=== PATIENT | female | born 1945 | race African-American/Black ===

== ENCOUNTER 2017-05-16 13:54 | Observation (INO) ==
[2017-05-17 06:49] LABS: Basophils % 0.6 % (0.0-0.8); Eosinophils # 0.3 10*3/uL (0.0-0.87); Eosinophils % 4.3 % (0.00-10.9); Hematocrit 34.2 VOL% (35.7-47.0); Immature Granulocytes % 0.3 %; Immature Granulocytes Absolute 0.02 #; Lymphocytes % 29.9 % (21.3-54.2); Mean Corpuscular HGB Conc 35.1 GM/DL (32-36); Mean Corpuscular Hemoglobin 31 PG (27-34); Mean Corpuscular Volume 86.8 FL (87-102); Monocytes # 0.6 10*3/uL (0.11-0.8); Monocytes % 8.4 % (1.7-12.7); Neutrophils # 3.7 10*3/uL (1.4-7.4); Neutrophils % 56.5 % (38.7-73.9); Platelet Count 132 T/CUMM (130-400); Red Blood Count 3.94 MC/CUMM (3.8-5.5); Red Cell Distribution Width 11.9 % (9.3-17.3); White Blood Count 6.6 T/CUMM (4-12)
[2017-05-17 06:53] LABS: Albumin 2.9 G/DL (3.4-5.0); Bilirubin,Total 0.6 MG/DL (0.2-1.0); Calcium 8.6 MG/DL (8.5-10.1); Osmolality,Calculated 289.7 MOS/KG (273-304); Potassium 3.8 MMOL/L (3.5-5.1); Total Protein 5.5 G/DL (6.4-8.3)
[2017-05-17 06:59] LABS: INR 1.1; PT Patient Result 11.3 SECS
[2017-05-17] MEDS ORDERED: ceFAZolin 1,000 MG VIAL IRRIG ONE (07:00)
[2017-05-17] MEDS ORDERED: ONDANSETRON 4 MG/2 ML VIAL IV ONE (07:00)
[2017-05-17] MEDS ORDERED: ceFAZolin 1,000 MG in SYRINGE 1 EACH IV ONE (07:00)
[2017-05-17] MEDS ORDERED: SODIUM CHLORIDE 0.9% 1,000 ML IV SCH ×2 (07:00)
[2017-05-17] MEDS ORDERED: DIAZEPAM 5 MG TABLET PO ONE (07:00)
[2017-05-17] MEDS ORDERED: diphenhydrAMINE CAP 25 MG CAPSULE PO ONE (07:00)
[2017-05-17] MEDS ORDERED: FLUMAZENIL 1 MG/10 ML VIAL IV PRN (07:00)
[2017-05-17] MEDS ORDERED: NALOXONE 0.4 MG/ML VIAL IV PRN (07:00)
[2017-05-17] MEDS: metFORMIN 500 MG TABLET PO SCH (09:34)
[2017-05-17] MEDS: FUROSEMIDE 40 MG TABLET PO SCH (09:44)
[2017-05-17] MEDS: POTASSIUM CHLORIDE 20 MEQ TABLET PO SCH (09:44)
[2017-05-17] MEDS: ENALAPRIL 10 MG TABLET PO SCH ×2 (09:44→22:12)
[2017-05-17] MEDS: ASPIRIN EC 81 MG TABLET PO SCH (09:44)
[2017-05-17] MEDS: FLUTICASONE 50 MCG NASAL SPRAY 16 GM BOTTLE BOTH NARES SCH (09:44)
[2017-05-17] MEDS: CETIRIZINE 10 MG TABLET PO SCH (09:45)
[2017-05-17] MEDS: MOMETASONE 220 MCG/PUFF INHALER 14 DOSE INH SCH (09:47)
[2017-05-17 10:15] LABS: Apearance,Urine Slightly Hazy (Clear); Bacteria,Urine Occasional /HPF (Few); Bilirubin,Urine Negative (Negative); Blood, Urine Negative (Negative); Glucose,Urine (UA) Negative (Negative); Ketones,Urine Negative (Negative); Nitrite,Urine Negative (Negative); Protein,Urine Negative; RBC,Urine <1 /HPF (0-4); Squamous Epithelial Cell,Urine Occasional /HPF (0-10); Urine Color Yellow (Yellow); Urine Specific Gravity 1.011 (1.001-1.035); Urine Urobilinogen < 2.0 EU/DL (0.2-1.0); WBC,Urine 1 /HPF (0-6)
[2017-05-17] MEDS ORDERED: MIDAZOLAM 2 MG/2 ML VIAL ONE ×2 (12:54→13:29)
[2017-05-17] MEDS ORDERED: LIDOCAINE 1% 20 ML VIAL ONE (12:54)
[2017-05-17] MEDS ORDERED: ceFAZolin 1,000 MG VIAL ONE ×2 (12:54→12:58)
[2017-05-17] MEDS ORDERED: fentaNYL 100 MCG/2 ML VIAL ONE (12:54)
[2017-05-17] MEDS ORDERED: diphenhydrAMINE 50 MG/1 ML VIAL ONE (13:26)
[2017-05-17] MEDS ORDERED: TISSUE ADHESIVE 1 EACH APPLICATOR TOP ONE (13:32)
[2017-05-17] MEDS ORDERED: DEXTROSE 50% 25 GM/50 ML VIAL IV PRN (14:47)
[2017-05-17] MEDS ORDERED: GLUCAGON 1 MG VIAL IM PRN (14:47)
[2017-05-17] MEDS ORDERED: metFORMIN 500 MG TABLET PO SCH (17:00)
[2017-05-17] MEDS ORDERED: ZALEPLON 5 MG CAPSULE PO PRN (18:48)
[2017-05-17] MEDS ORDERED: diphenhydrAMINE CAP 25 MG CAPSULE PO PRN (18:48)
[2017-05-17] MEDS ORDERED: BISACODYL 5 MG TABLET PO PRN (18:48)
[2017-05-17] MEDS ORDERED: guaiFENesin/DM ER 600-30 MG TABLET PO PRN (18:48)
[2017-05-17] MEDS ORDERED: TERAZOSIN 2 MG CAPSULE PO SCH (21:00)
[2017-05-18] MEDS ORDERED: traMADol 50 MG TABLET PO PRN (06:14)
[2017-05-18 07:43] VITALS: BP 114/83
[2017-05-18] MEDS ORDERED: PANTOPRAZOLE 40 MG TABLET PO SCH (09:00)
[2017-05-18] MEDS: CETIRIZINE 10 MG TABLET PO SCH (09:30)
[2017-05-18] MEDS: POTASSIUM CHLORIDE 20 MEQ TABLET PO SCH (09:31)
[2017-05-18] MEDS: ENALAPRIL 10 MG TABLET PO SCH (09:31)
[2017-05-18] MEDS: MOMETASONE 220 MCG/PUFF INHALER 14 DOSE INH SCH (09:32)
[2017-05-18] MEDS: ASPIRIN EC 81 MG TABLET PO SCH (09:32)
[2017-05-18] MEDS: metFORMIN 500 MG TABLET PO SCH (09:32)
[2017-05-18] MEDS: FUROSEMIDE 40 MG TABLET PO SCH (09:32)
[2017-05-18] MEDS: FLUTICASONE 50 MCG NASAL SPRAY 16 GM BOTTLE BOTH NARES SCH (09:32)
== END 2017-05-18 11:15 | disposition home or self-care (01) ==
LOC: N.RAD 13:54 → INTOOBSV 18:30 → N.TELES 18:30 → INTOOBSV 05-17 09:52 → N.TELES 05-17 09:52
PROVIDERS: ADMIT Internal Medicine Cardiovascular Disease; ATTEND Internal Medicine Cardiovascular Disease

== ENCOUNTER 2018-06-29 05:20 | Inpatient (IN) ==
[2018-06-16 13:33] LABS: Basophils % 0.7 % (0.0-0.8); Eosinophils # 0.2 10*3/uL (0.0-0.87); Eosinophils % 3.8 % (0.00-10.9); Hemoglobin 11.7 GM/DL (12.0-16.0); Immature Granulocytes % 0.3 %; Immature Granulocytes Absolute 0.02 #; Lymphocytes # 1.8 10*3/uL (1.4-4.0); Lymphocytes % 31.6 % (21.3-54.2); Mean Corpuscular HGB Conc 33.4 GM/DL (32-36); Mean Corpuscular Hemoglobin 30 PG (27-34); Mean Corpuscular Volume 90.4 FL (87-102); Mean Platelet Volume 11.1 FL (9.6-12.0); Monocytes # 0.5 10*3/uL (0.11-0.8); Monocytes % 8.1 % (1.7-12.7); Neutrophils # 3.2 10*3/uL (1.4-7.4); Neutrophils % 55.5 % (38.7-73.9); Platelet Count 170 T/CUMM (130-400); Red Blood Count 3.87 MC/CUMM (3.8-5.5); White Blood Count 5.8 T/CUMM (4-12)
[2018-06-16 13:43] LABS: PT Patient Result 11.3 SECS; Partial Thromboplastin Time 23.8 SECS (0-40)
[2018-06-16 14:01] LABS: Apearance,Urine CLEAR (Clear); Bilirubin,Urine Negative (Negative); Blood, Urine Negative (Negative); Glucose,Urine (UA) Negative (Negative); Ketones,Urine Negative (Negative); Nitrite,Urine Negative (Negative); Protein,Urine Negative; RBC,Urine 1 /HPF (0-4); Squamous Epithelial Cell,Urine Occasional /HPF (0-10); Urine Color Yellow (Yellow); Urine Specific Gravity 1.011 (1.001-1.035); Urine Urobilinogen < 2.0 EU/DL (0.2-1.0); WBC,Urine <1 /HPF (0-6)
[2018-06-16 14:09] LABS: Alanine Aminotransferase 19 U/L (13-56); Alkaline Phosphatase 59 U/L (45-117); Aspartate Amino Transferase 13 U/L (0-37); Bilirubin,Total < 0.39 MG/DL (0.2-1.0); Blood Urea Nitrogen 13 MG/DL (7-18); Calcium 8.6 MG/DL (8.5-10.1); Glucose 72 MG/DL (74-106); Osmolality,Calculated 284.8 MOS/KG (273-304); Potassium 3.9 MMOL/L (3.5-5.1); Sodium 144 MMOL/L (136-145); Total Protein 6.3 G/DL (6.4-8.3)
[2018-06-29] MEDS ORDERED: ceFAZolin 1,000 MG in SYRINGE 1 EACH IV ONE (06:30)
[2018-06-29] MEDS ORDERED: VANCOMYCIN INJ 1,000 MG in SODIUM CHLORIDE 0.9% 250 ML IV ONE (06:30)
[2018-06-29] MEDS ORDERED: FAMOTIDINE 20 MG TABLET PO ONE (07:38)
[2018-06-29] MEDS ORDERED: FAMOTIDINE 20 MG TABLET ONE (08:00)
[2018-06-29] MEDS ORDERED: ceFAZolin 1,000 MG VIAL ONE (08:00)
[2018-06-29] MEDS ORDERED: VANCOMYCIN 1,000 MG VIAL ONE (08:00)
[2018-06-29] MEDS ORDERED: LACTATED RINGERS 1,000 ML IV SCH (08:00)
[2018-06-29] MEDS ORDERED: ROPIVACAINE 0.5% 30 ML VIAL ONE (10:10)
[2018-06-29] MEDS ORDERED: MIDAZOLAM 2 MG/2 ML VIAL ONE ×2 (10:15→13:44)
[2018-06-29] MEDS ORDERED: TRANEXAMIC ACID 1,000 MG/10 ML VIAL ONE (10:31)
[2018-06-29] MEDS ORDERED: PROPOFOL 500 MG/50 ML BOTTLE IV ONE (10:32)
[2018-06-29] MEDS ORDERED: PHENYLEPHRINE DRIP 20 MG/250 ML PREMIX IV ONE (10:32)
[2018-06-29] MEDS ORDERED: FLUTICASONE 50 MCG NASAL SPRAY 16 GM BOTTLE BOTH NARES PRN (11:02)
[2018-06-29] MEDS ORDERED: MAGNESIUM HYDROXIDE SUSP 30 ML UDCUP PO PRN (11:04)
[2018-06-29] MEDS ORDERED: diphenhydrAMINE CAP 25 MG CAPSULE PO PRN (11:04)
[2018-06-29] MEDS ORDERED: MORPHINE 4 MG/1 ML VIAL IV PRN ×2 (11:04)
[2018-06-29] MEDS ORDERED: DEXTROSE 50% 25 GM/50 ML VIAL IV PRN (11:04)
[2018-06-29] MEDS ORDERED: ONDANSETRON 4 MG/2 ML VIAL IV PRN ×2 (11:04→12:38)
[2018-06-29] MEDS ORDERED: oxyCODONE IR 5 MG TABLET PO PRN ×2 (11:04)
[2018-06-29] MEDS ORDERED: GLUCAGON 1 MG VIAL IM PRN (11:04)
[2018-06-29] MEDS ORDERED: ZALEPLON 5 MG CAPSULE PO PRN (11:04)
[2018-06-29] MEDS ORDERED: BACITRACIN OINT 0.9 GM PACK TOP ONE (11:44)
[2018-06-29] MEDS: LACTATED RINGERS 1,000 ML IV SCH (12:15)
[2018-06-29] MEDS ORDERED: HYDROmorphone 2 MG/1 ML VIAL ONE (12:20)
[2018-06-29] MEDS ORDERED: ACETAMINOPHEN 1,000 MG/100 ML VIAL IV ONE (12:20)
[2018-06-29] MEDS ORDERED: ONDANSETRON 4 MG/2 ML VIAL ONE (12:20)
[2018-06-29] MEDS: HYDROmorphone 2 MG/1 ML VIAL IV PRN ×4 (12:25→12:40)
[2018-06-29] MEDS ORDERED: MEPERIDINE 25 MG/1 ML VIAL ONE (12:38)
[2018-06-29] MEDS ORDERED: MEPERIDINE 25 MG/1 ML VIAL IV PRN (12:38)
[2018-06-29] MEDS ORDERED: PROMETHAZINE INJ 25 MG in SODIUM CHLORIDE 0.9% 50 ML IV PRN (12:38)
[2018-06-29] MEDS ORDERED: PROMETHAZINE 25 MG/1 ML VIAL ONE (12:38)
[2018-06-29] MEDS ORDERED: ACETAMINOPHEN INJ 1,000 MG in PREMIX 1 EACH IV ONE (12:39)
[2018-06-29] MEDS: INSULIN LISPRO 100 UNIT/ML SUBCUT SCH ×3 (12:57→21:46)
[2018-06-29] MEDS: KETOROLAC 15 MG/1 ML VIAL IV SCH ×2 (13:00→18:33)
[2018-06-29] MEDS ORDERED: hydrALAZINE 20 MG/1 ML VIAL ONE (13:44)
[2018-06-29] MEDS ORDERED: KETAMINE 500 MG/10 ML VIAL ONE (13:45)
[2018-06-29] MEDS ORDERED: DEXTROSE 50% 25 GM/50 ML SYRINGE IV PRN (14:30)
[2018-06-29] MEDS ORDERED: ALBUTEROL 2.5 MG/3 ML NEB RESP TX PRN (15:00)
[2018-06-29] MEDS: ceFAZolin 2,000 MG in PREMIX 1 EACH IV SCH ×2 (16:10→23:25)
[2018-06-29] MEDS: metFORMIN 500 MG TABLET PO SCH (18:31)
[2018-06-29] MEDS: ACETAMINOPHEN 500 MG TABLET PO SCH (18:32)
[2018-06-29] MEDS: TERAZOSIN 5 MG CAPSULE PO SCH (21:44)
[2018-06-29] MEDS: DOCUSATE SODIUM 100 MG CAPSULE PO SCH (21:44)
[2018-06-29] MEDS: ENALAPRIL 10 MG TABLET PO SCH (21:44)
[2018-06-30] MEDS: ACETAMINOPHEN 500 MG TABLET PO SCH ×3 (01:22→12:38)
[2018-06-30] MEDS: KETOROLAC 15 MG/1 ML VIAL IV SCH ×2 (01:22→07:20)
[2018-06-30] MEDS: LACTATED RINGERS 1,000 ML IV SCH ×2 (03:17→03:43)
[2018-06-30] MEDS: FONDAPARINUX 2.5 MG/0.5 ML SYRINGE SUBCUT SCH (04:54)
[2018-06-30 05:37] LABS: Basophils % 0.4 % (0.0-0.8); Eosinophils # 0.2 10*3/uL (0.0-0.87); Eosinophils % 3.1 % (0.00-10.9); Hematocrit 29.8 VOL% (35.7-47.0); Hemoglobin 9.6 GM/DL (12.0-16.0); Immature Granulocytes % 0.3 %; Immature Granulocytes Absolute 0.02 #; Lymphocytes # 1.5 10*3/uL (1.4-4.0); Lymphocytes % 21.9 % (21.3-54.2); Mean Corpuscular HGB Conc 32.2 GM/DL (32-36); Mean Corpuscular Hemoglobin 30 PG (27-34); Mean Corpuscular Volume 91.7 FL (87-102); Mean Platelet Volume 11.7 FL (9.6-12.0); Monocytes # 0.7 10*3/uL (0.11-0.8); Neutrophils # 4.3 10*3/uL (1.4-7.4); Neutrophils % 63.3 % (38.7-73.9); Platelet Count 134 T/CUMM (130-400); Red Blood Count 3.25 MC/CUMM (3.8-5.5); White Blood Count 6.8 T/CUMM (4-12)
[2018-06-30 05:53] LABS: Calcium 7.7 MG/DL (8.5-10.1); Potassium 3.9 MMOL/L (3.5-5.1)
[2018-06-30] MEDS ORDERED: oxyCODONE/ACETAMINOPHEN 5-325 MG TABLET PO PRN (06:54)
[2018-06-30] MEDS ORDERED: ACETAMINOPHEN 325 MG TABLET PO PRN (06:57)
[2018-06-30] MEDS: oxyCODONE/ACETAMINOPHEN 5-325 MG TABLET PO PRN ×3 (07:20→14:20)
[2018-06-30] MEDS: INSULIN LISPRO 100 UNIT/ML SUBCUT SCH ×4 (07:27→20:38)
[2018-06-30] MEDS ORDERED: KETOROLAC 15 MG/1 ML VIAL IV SCH (07:30)
[2018-06-30] MEDS: metFORMIN 500 MG TABLET PO SCH ×2 (09:22→17:47)
[2018-06-30] MEDS: POTASSIUM CHLORIDE 20 MEQ TABLET PO SCH (09:22)
[2018-06-30] MEDS: FUROSEMIDE 40 MG TABLET PO SCH (09:22)
[2018-06-30] MEDS: CETIRIZINE 10 MG TABLET PO SCH (09:22)
[2018-06-30] MEDS: ENALAPRIL 10 MG TABLET PO SCH ×2 (09:23→20:37)
[2018-06-30] MEDS: DOCUSATE SODIUM 100 MG CAPSULE PO SCH ×2 (09:23→20:37)
[2018-06-30] MEDS: MOMETASONE 220 MCG/PUFF INHALER 14 DOSE INH SCH (09:30)
[2018-06-30] MEDS: amLODIPine 5 MG TABLET PO SCH (09:30)
[2018-06-30] MEDS: TERAZOSIN 5 MG CAPSULE PO SCH (20:38)
[2018-07-01] MEDS: FONDAPARINUX 2.5 MG/0.5 ML SYRINGE SUBCUT SCH (04:43)
[2018-07-01 06:20] LABS: Basophils % 0.2 % (0.0-0.8); Eosinophils # 0.3 10*3/uL (0.0-0.87); Eosinophils % 3.7 % (0.00-10.9); Hematocrit 29.3 VOL% (35.7-47.0); Hemoglobin 9.6 GM/DL (12.0-16.0); Immature Granulocytes % 0.4 %; Immature Granulocytes Absolute 0.03 #; Lymphocytes # 1.6 10*3/uL (1.4-4.0); Lymphocytes % 18.6 % (21.3-54.2); Mean Corpuscular HGB Conc 32.8 GM/DL (32-36); Mean Corpuscular Hemoglobin 30 PG (27-34); Mean Platelet Volume 11.7 FL (9.6-12.0); Monocytes # 0.6 10*3/uL (0.11-0.8); Monocytes % 7.5 % (1.7-12.7); Neutrophils # 5.9 10*3/uL (1.4-7.4); Neutrophils % 69.6 % (38.7-73.9); Platelet Count 129 T/CUMM (130-400); Red Blood Count 3.22 MC/CUMM (3.8-5.5); Red Cell Distribution Width 12.1 % (9.3-17.3); White Blood Count 8.4 T/CUMM (4-12)
[2018-07-01] MEDS: INSULIN LISPRO 100 UNIT/ML SUBCUT SCH ×2 (08:08→13:20)
[2018-07-01] MEDS: CETIRIZINE 10 MG TABLET PO SCH (08:27)
[2018-07-01] MEDS: metFORMIN 500 MG TABLET PO SCH (08:27)
[2018-07-01] MEDS: amLODIPine 5 MG TABLET PO SCH (08:27)
[2018-07-01] MEDS: POTASSIUM CHLORIDE 20 MEQ TABLET PO SCH (08:27)
[2018-07-01] MEDS: FUROSEMIDE 40 MG TABLET PO SCH (08:27)
[2018-07-01] MEDS: MOMETASONE 220 MCG/PUFF INHALER 14 DOSE INH SCH (08:27)
[2018-07-01] MEDS: ENALAPRIL 10 MG TABLET PO SCH (08:27)
[2018-07-01] MEDS: oxyCODONE/ACETAMINOPHEN 5-325 MG TABLET PO PRN (08:27)
[2018-07-01] MEDS: DOCUSATE SODIUM 100 MG CAPSULE PO SCH (08:27)
[2018-07-01 11:47] VITALS: BP 120/87
== END 2018-07-01 14:50 | disposition home health service (06) | DRG 470 ==
LOC: N.OR 05:20 → N.SDSINP 05:21 → N.3E 11:05
PROVIDERS: ADMIT Orthopaedic Surgery; ATTEND Orthopaedic Surgery